=== PATIENT | male | born 1960 | race Caucasian/White ===

== ENCOUNTER 2023-07-06 08:31 | Day surgery (SDC) | payer SELFPAY ==
[~2023-07-06 08:31] MED LIST: Lactated Ringers 1,000 ML IV SCH; propofoL 50 ML ONE
[2023-07-06] MEDS ORDERED: Propofol 200 MG/20 ML SDV ONE ×2 (10:36→11:03)
[2023-07-06] MEDS ORDERED: Lactated Ringers 1,000 ML IV SCH (11:30)
== END 2023-07-06 12:20 | disposition home or self-care (01) ==
LOC: MW.SDS 08:31
PROVIDERS: ATTEND Surgery
DX: D12.6 Benign neoplasm of colon, unspecified (principal); K29.50 Unspecified chronic gastritis without bleeding; K20.90 Esophagitis, unspecified without bleeding; K29.80 Duodenitis without bleeding; K31.7 Polyp of stomach and duodenum; K62.1 Rectal polyp; D64.9 Anemia, unspecified; D69.6 Thrombocytopenia, unspecified; Z90.49 Acquired absence of other specified parts of digestive tract; Z82.49 Family history of ischemic heart disease and other diseases of the circulatory system; Z87.891 Personal history of nicotine dependence; Z79.899 Other long term (current) drug therapy; Z90.89 Acquired absence of other organs
CPT/HCPCS: 43239; 45380; 45385; J2704; J7120; 00813